=== PATIENT | female | born 1940 | race Caucasian/White ===

== ENCOUNTER 2023-12-24 13:01 | Emergency (ER) | payer OTHER, SELFPAY ==
[2023-12-24 13:03] VITALS: BP 119/69
[2023-12-24 13:06] VITALS: BP 119/69
[2023-12-24 13:26] LABS: % Basophils 0.4 % (0-2); % Eosinophils 0.6 % (0-6); % Immature Granulocytes 0.3 % (0-0.5); % Lymphocytes 16.7 % (20.5-51.1); Absolute Eosinophils 0.1 10^3/uL (0-0.7); Absolute Lymphocytes 1.6 10^3/uL (1.2-3.4); Absolute Neutrophils 6.8 10^3/uL (1.4-6.5); Hematocrit 50.2 % (37.0-47.0); Hemoglobin 16.8 g/dL (12.0-16.0); Mean Corp Hgb Conc. 33.5 g/dL (33.0-37.0); Mean Corpuscular Hgb 33.3 pg (27.0-31.0); Mean Corpuscular Volume 99.6 fL (81.0-99.0); Mean Platelet Volume 11.1 fL (7.4-10.4); Nucleated Red Blood Cells % 0 %; Platelet Count 154 10^3/uL (130-400); Red Blood Cell Count 5.04 10^6/uL (4.20-5.40); Red Cell Dist. Width 14.4 % (11.5-14.5); White Blood Cell Count 9.5 10^3/uL (4.8-10.8)
[2023-12-24 13:49] LABS: ALT (SGPT) 11 U/L (0-35); AST (SGOT) 23 U/L (14-36); Albumin 4.2 g/dl (3.5-5.0); Alkaline Phosphatase 67 U/L (38-126); Blood Urea Nitrogen 24 mg/dl (7-17); Calcium 10.2 mg/dl (8.4-10.2); Carbon Dioxide 30 mmol/L (22-30); Chloride 97 mmol/L (98-107); Glucose 144 mg/dl (70-99); Sodium 139 mmol/L (135-145); Total Bilirubin 2.4 mg/dl (0.2-1.3); Total Protein 6.9 g/dl (6.3-8.2); eGFR 49.24
[2023-12-24 13:58] LABS: NT-proBNP 2710 pg/ml
--- NOTE | 2023-12-24 15:12 | ED.GENMED ---
History of Present Illness
General
Chief Complaint: Breathing Problem
Time Seen by Provider: 12/24/23 15:12
History of Present Illness
History of Present Illness:
HPI: The patient flew here from [place] 3 days ago. That day, she developed cough and shortness of breath. She is on apixaban for history of A-fib in [place]. She denies any chest discomfort. She was at urgent care initially and they found her to
have sats went down to 89% after exertion. At rest she had been in the mid to high 90%'s. There has been minimal pedal edema as well.
EXAM:
GENERAL: Well appearing in no distress
HEENT: Moist oral mucosa
CARDIOVASCULAR: No murmurs, borderline tachycardic heart rate, irregular rhythm, No chest wall tenderness
PULMONARY: No respiratory distress, prominent wheeze bilaterally
ABDOMEN: Soft with no peritoneal signs, no tenderness
NEUROLOGIC: Excellent strength all extremities, no coordination deficits
PSYCHIATRIC: Appropriate mental status, normal insight and judgement
EXTREMITIES: Nontender, trace pedal edema, moves all extremities equally, no calf tenderness
SKIN: No rash, no lesions
TIME OF INITIAL ENCOUNTER: 3:25 PM
NUMBER AND COMPLEXITY OF PROBLEMS ADDRESSED AT THE ENCOUNTER
� Chronic conditions affecting care: CHF, high blood pressure, A-fib on apixaban
� Acute Exacerbation and/or Progression of Chronic Illness: This is an acute problem
� Differential Diagnosis includes: CHF exacerbation, viral syndrome with wheeze, PE
AMOUNT AND/OR COMPLEXITY OF DATA TO BE REVIEWED AND ANALYZED
� I performed an independent evaluation of and my interpretation is:
EKG: A-fib 106, leftward axis deviation, PVCs
CT: CTA personally viewed�no evidence for PE but cardiomegaly noted.
X-rays:
Laboratory Studies: White count 9.5, hemoglobin 16.8, BUN 24, creatinine 1.1, BNP 2710
Other:
� Review of other/old records: I reviewed old records�no old BNP to compare
� Clinical information was obtained by an independent historian: I spoke to family at bedside
� Prescriptions/Medications Considered but not given:
� Further testing considered but not performed:
RISK OF COMPLICATIONS AND/OR MORBIDITY OR MORTALITY OF PATIENT MANAGEMENT
� Social determinants of health affecting care: Patient and family live in [place]
� Discussion with other providers:
� Escalation of care including admission/observation vs risk of discharge considered: Although patient is on apixaban, and she does have a wheeze, her symptoms started the day she flew from [place] to here and desatted to 89%
according to urgent care on room air after minimal exertion will obtain CTA. CTA negative for PE. She does have a history of heart failure and is on diuretic. She does report some improvement after DuoNeb and steroids were given. She does not
want to stay in the hospital for further evaluation. Symptoms are likely multifactorial including viral syndrome/reactive airway disease on top of heart failure.
Phy Exam
Physical Exam
Physical Exam:
See HPI
Scores
Heart Failure Risk
Heart Failure Risk Score: Not Applicable
Course
Orders/Labs/Results
Orders:
Orders
12/24/23 13:02
Electrocardiogram (*1) Urgent
Reason for Study: Shortness of Breath
EKG- Treatment ONCE
12/24/23 13:17
Complete Blood Count/With Diff Urgent
Comprehensive Metabolic Panel Urgent
NT-proBNP Urgent
12/24/23 15:34
CT Chest Pe Study Urgent
Comment:
Reason For Exam: sob onset day flew from [place], cough/wheeze/chf
Ipratropium/Albuterol Sulfate [Duoneb] 3 ml INH R NOW STA
12/24/23 16:00
Dexamethasone Sod Phosphate [Decadron] 10 mg 0.9% Sodium Chloride 50 ml [Nss] 50 ml IV ONCE
12/24/23 18:34
Furosemide [Lasix] 20 mg IV NOW STA
Abnormal Lab Results
12/24/23
13:17
Hgb 16.8 H g/dL
(12.0-16.0)
Hct 50.2 H %
(37.0-47.0)
MCV 99.6 H fL
(81.0-99.0)
MCH 33.3 H pg
(27.0-31.0)
MPV 11.1 H fL
(7.4-10.4)
Absolute Neuts (auto) 6.8 H 10^3/uL
(1.4-6.5)
Absolute Monos (auto) 1.0 H 10^3/uL
(0.1-0.6)
Lymphocytes % 16.7 L %
(20.5-51.1)
Monocytes % 10.0 H %
(1.7-9.3)
Chloride 97 L mmol/L
(98-107)
BUN 24 H mg/dl
(7-17)
Creatinine 1.1 H mg/dL
(0.6-1.0)
Glucose 144 H mg/dl
(70-99)
Total Bilirubin 2.4 H mg/dl
(0.2-1.3)
12/24/23 13:17
12/24/23 13:17
Vital Signs
Initial and Last Documented VS:
Initial Vital Signs
Temp Pulse Resp BP Pulse Ox
98.1 F 71 18 119/69 96
12/24/23 13:03 12/24/23 13:03 12/24/23 13:03 12/24/23 13:03 12/24/23 13:03
Last Documented Vital Signs
Temp Pulse Resp BP Pulse Ox
97.3 F 92 27 111/76 98
12/24/23 15:43 12/24/23 15:43 12/24/23 15:43 12/24/23 15:43 12/24/23 15:43
*Critical Care Note
Total Time (30-74mins, 75-104mins- exclusive of procedures): Not Applicable
ED Attending Note
-
Portions of this chart may have been created with voice recognition software.� Occasional wrong word or��sound alike� substitutions may have occurred due to the inherent limitations of voice recognition software.
Discharge Plan
Departure
Patient Disposition: Home (Routine Discharge)
Date of Disposition: 12/24/23
Time of Disposition: 18:41
Patient with high blood pressure during this ER visit?: Yes
Discharge Problem:
Acute dyspnea
Instructions: Shortness of Breath (Dyspnea) (DC)
Prescriptions:
New
albuterol sulfate 90 mcg/actuation HFA aerosol inhaler
2 puff inhalation Q6H PRN (Reason: shortness of breath or wheezing) Qty: 8.5 0RF
benzonatate 200 mg capsule
200 mg PO BID PRN (Reason: Cough) Qty: 10 0RF
Referrals:
NONE,* [Family Provider] -
Activity Restrictions/Additional Instructions:
The test that we do for congestive heart failure by blood work is called a BNP level. Yours was high at 2710. Continue your water pill. Since you recently were on a flight and had symptoms that started around that time, a CAT scan was obtained
but that shows no sign of blood clots. The CAT scan does show an enlarged heart but no signs of fluid buildup either and no signs of pneumonia. Your white blood cell count is normal. Your hemoglobin is slightly high at 16.8. Since you are
wheezing, we did try a dose of IV Decadron which is a long-acting steroid and we can try an albuterol inhaler and a medicine for cough suppression. I sent the prescriptions to [address] in [place].
Interventions
Interventions:
*Risk Screen - Suicide Last Done: 12/24/23 13:06
*General Assessment Last Done: 12/24/23 15:52
*Neglect/Abuse Screening Last Done: 12/24/23 13:06
ED- Fall Risk Assessment Last Done: 12/24/23 15:54
*ED COVID-19 Vaccine History Last Done: 12/24/23 15:51
ED- Cardiac Assessment Last Done: 12/24/23 15:54
ED- Pulmonary Assessment Last Done: 12/24/23 15:54
Discharge Date and Time
Print Language: EGYPTIAN
[2023-12-24 15:43] VITALS: BP 111/76
[2023-12-24] MEDS: DUONEB 3 ML INH (15:47)
[2023-12-24] MEDS: DECADRON 52.5 MG IV (16:03)
[2023-12-24 18:38] VITALS: BMI 29.5
[2023-12-24 18:48] VITALS: BP 114/74
== END 2023-12-24 19:37 | disposition home or self-care (01) ==
LOC: EMR 13:01
PROVIDERS: Emergency Medicine; EMERGENCY PHYSICIAN Emergency Medicine
DX: R06.00 Dyspnea, unspecified (principal); I48.91 Unspecified atrial fibrillation
CPT/HCPCS: 99284; 94640; 96365; 71275; 80053; 83880; 85025; 93005; Q9967